=== PATIENT | male | born 1980 | race Caucasian/White ===

== ENCOUNTER → 2016-10-30 | Outpatient (CLI) | payer OTHER ==
--- NOTE | 2016-10-30 14:05 | XR ---
Lumbosacral spine HISTORY: Degenerative disc disease, back pain 5 views of lumbosacral spine No comparisons Lumbar vertebral bodies show preserved height, alignment, and bone mineralization. Suspect L5 May be sacralized. Mild loss of disc height L4-5. Sclerosis in the posterior elements of the lower lumbar sp ine compatible with facet arthropathy. Atherosclerotic vascular calcifications are present. IMPRESSION: Correlate with plain film prior to any intervention. Suspect facet arthropathy.
== END | disposition home or self-care (01) ==
LOC: RADXRMAIN 10:59
PROVIDERS: ATTEND Family Medicine
DX: M54.5 Low back pain (principal)
CPT/HCPCS: 72110